=== PATIENT | male | born 1975 | race Caucasian/White ===

== ENCOUNTER 2017-11-24 04:35 | Emergency (ER) | payer BC ==
--- NOTE | 2017-11-24 05:04 | ERNOTE ---
Chest Pain/Cardiac HPI Chief Complaint: Chest Pain Time Seen by Provider: 11/24/17 04:42 Source: patient Exam Limitations: no limitations Immunizations: IMMUNIZATION HX Immunizations Up to Date Yes Allergies/Adverse Reactions: Allergies aspirin Allergy (Intermediate, Verified 10/13/17 16:59) Hives Home Medications: HOME MEDICATIONS metFORMIN HCL [Glumetza] 500 mg PO BID 05/07/14 [Last Taken Unknown] Acetaminophen with Codeine [Tylenol-Codeine 300 MG/30 MG] 1 - 2 tab PO Q6H PRN # 30 tab 10/13/17 [Last Taken Unknown] Simvastatin 40 mg PO HS 10/13/17 [Last Taken Unknown] Enalapril Maleate [Vasotec] 20 mg PO DAILY 11/24/17 [Last Taken Unknown] Enalapril Maleate [Vasotec] 20 mg PO HS 11/24/17 [Last Taken Unknown] Narrative: Pt had sudden onset of left sided squeezing chest pain around 18:00 last night with left shoulder and arm pain. Throughout the night it worsened to a 4/10 and pt presented to the ED. Timing: other - waxing / waning Severity/Quality: mild, pressure Location: left chest Chest Pain Radiation: arms - left, shoulders - left Activities at Onset: none Modifying Factors - Improves: Absent: antacids Modifying Factors - Worsens: Present: breathing, movement Nitro Today/Relief: no nitro taken today Aspirin Treatment Today: no aspirin today Associated Symptoms: Present: dizziness - "a little when it first happened", shortness of breath - mild. Absent: headache, cough Prior Chest Pain/Cardiac Workup: Reports: no prior cardiac workup Review of Systems - Review of Systems Constitutional: Absent: recent illness, fever, chills EYE: Absent: vision changes ENT: Absent: nose congestion, nasal drainage Respiratory: Present: See HPI Cardiology: Present: See HPI. Absent: palpitations Gastrointestinal/Abdominal: Absent: nausea, vomiting, abdominal pain Genitourinary: Absent: frequency, pain, dysuria Musculoskeletal: Present: back pain - left upper Skin: Absent: rash Neurological: Absent: dizziness/light-headedness Endocrine: Absent: excessive sweating - Patient's Past Medical History Patient History - Medical: Diabetes Type 2 Patient History - Cardiac/Respiratory: Hypertension, Hyperlipidemia Patient History - Cancer: No Hx of Cancer Patient History - Surgical Procedures: Other - Leg surgery Patient History - Other: None - Social History Psych History: No pertinent hx - Immunizations Immunizations Up to Date: Yes Physical Exam - Physical Exam General Appearance: Present: wd/wn, alert, no apparent distress Head Exam: Present: normal inspection, no evidence of injury Eye Exam: Normal inspection: bilateral, PERRL: bilateral Neck: Present: normal inspection, nontender, supple. Absent: lymphadenopathy (R ), lymphadenopathy (L) Respiratory: Present: no respiratory distress, normal breath sounds, no accessory muscle use, chest nontender, lungs clear Cardiovascular/Chest: Present: regular rate, rhythm, no murmur Gastrointestinal/Abdominal: Present: normal bowel sounds, nontender, nondistended, soft Extremity Exam: Present: normal inspection, non-tender, normal range of motion, no edema Neurological Exam: Present: alert, oriented, normal mood/affect, no motor/ sensory deficits Skin Exam: Present: normal color, warm/dry Lymphatic Exam: Present: no adenopathy ED Progress - Results and Orders Patient's Lab Results:: I have reviewed the patient's lab results. Results and Orders: Laboratory Tests 11/24/17 11/24/17 11/24/17 05:00 05:00 05:00 WBC 7.6 Hgb 14.8 Hct 42.5 Plt Count 279 D-Dimer 0.30 Sodium 137 Potassium 3.8 Chloride 100 Carbon Dioxide 29.3 Anion Gap 11.5 BUN 10 Creatinine 0.88 Random Glucose 105 Calcium 8.8 Total Bilirubin 0.5 AST 25 ALT 63 Alkaline Phosphatase 58 Troponin I Less than 0.017 Total Protein 7.2 Albumin 3.9 - Vital Signs Patient's Vital Signs:: I have reviewed the patient's vital signs. - EKG EKG: NSR, no ST T wave changes EKG read: Interp. by me - X-Ray X-Ray #1 X-Ray: chest Interpretation: Interp. by me X-ray Comments: Nothing acute - Progress/Reassessment Progress:: Improved Progress Note-Subjective: 11/24/17 07:12 Pt has been improving throughout his stay. He was given a GI coctail and he believes it may have helped a little but he still has pain with deep breaths. Departure Clinical Impression: Pleuritic chest pain - Departure Disposition: Home self-care Condition: Good Instructions: Pleurisy Additional Instructions: You may take tylenol as needed for discomfort. See your primary care provider if not improving. Return to the ER if worsening or your symptoms change. Referrals: Madeleine Grande ARNP [Primary Care Provider] -
[2017-11-24 05:05] LABS: Hematocrit 42.5 % (42.0-52.0); Hemoglobin 14.8 gm/dL (13.5-18.0); Mean Cell Volume 85.7 fl (78-100); Mean Corpuscular Hemoglobin 29.8 pg (27-31); Mean Corpuscular Hgb Conc 34.8 g/dl (32-36); Mean Platelet Volume 8.3 fl (8-11.3); Neutrophil # 3.3 K/mm3 (1.3-6.0); Neutrophil % 43.4 % (42-75.0); Platelet Count 279 K/mm3 (150-450); Red Blood Count 4.96 M/mm3 (4.7-6.0); Red Cell Distribution Width 11.7 % (11.5-14.0); White Blood Count 7.6 K/mm3 (4.0-10.5)
[2017-11-24 05:21] LABS: ALT 63 U/L (19-67); AST 25 U/L (0-48); Albumin * 3.9 gm/dl (3.4-5.0); Alkaline Phosphatase * 58 U/L (50-170); Anion Gap 11.5 mmol/L (6.8-13.8); BUN/Creatinine Ratio 11.4 (9.0-21.6); Bilirubin, Total 0.5 mg/dL (0.0-1.1); Blood Urea Nitrogen 10 mg/dL (6-23); Ca. Corrected For Albumin 8.6 mg/dL (8.4-10.2); Calcium * 8.8 mg/dL (7.9-10.9); Carbon Dioxide 29.3 mmol/L (24-32.6); Chloride 100 mmol/L (97-106); Glucose * 105 mg/dL (70-110); Potassium 3.8 mmol/L (3.4-4.6); Sodium 137 mmol/L (132-142); Total Protein 7.2 gm/dL (6.2-8.2)
[2017-11-24 05:28] LABS: Troponin I Less than 0.017 ng/ml (0.00-0.10)
[2017-11-24] MEDS ORDERED: LIDOCAINE HCL 20 ML UDC PO ONE (06:43)
[2017-11-24] MEDS ORDERED: SUCRALFATE 1 G/10 ML UDC PO ONE (06:43)
[2017-11-24] MEDS ORDERED: MAG HYDROX/ALUMINUM HYD/SIMETH 30 ML UDC PO ONE (06:43)
[2017-11-24 06:59] VITALS: BP 157/88
== END 2017-11-24 07:26 | disposition home or self-care (01) ==
LOC: ER 04:35
CPT/HCPCS: 36415; 71020; 71046; 80053; 84484; 85025; 85379; 93005; 99284